=== PATIENT | female | born 1995 | race Caucasian/White ===

== ENCOUNTER → 2019-01-12 | Outpatient (CLI) | payer OTHER ==
[~2019-01-12] MED LIST: ALBU90OI INH; MEDR10 PO; MONT10T PO; Super B Comple1 EAC2 PO
[2019-01-12 15:40] LABS: BASOPHILS ABSOLUTE AUTO 0.06 K/mm3 (0.00-0.23); BASOPHILS PERCENT AUTO 0 % (0-2); EOSINOPHILS ABSOLUTE AUTO 0.02 K/mm3 (0.00-0.68); EOSINOPHILS PERCENT AUTO 0 % (0-6); Hematocrit 41.8 % (33.0-51.0); Hemoglobin 14.4 g/dL (11.5-16.0); IMMATURE GRAN ABSOLUTE AUTO 0.07 K/mm3 (0.00-0.10); IMMATURE GRAN PERCENT AUTO 0 % (0-1); LYMPHOCYTES ABSOLUTE AUTO 0.89 K/mm3 (0.84-5.20); LYMPHOCYTES PERCENT AUTO 4 % (21-46); MONOCYTES ABSOLUTE AUTO 2.01 K/mm3 (0.16-1.47); MONOCYTES PERCENT AUTO 10 % (4-13); Mean Corpuscular HGB 32.3 pg (26.0-34.0); Mean Corpuscular HGB Conc 34.4 g/dL (31.5-36.5); Mean Corpuscular Volume 94 fL (80-100); Mean Platelet Volume 12.2 fL (9.1-12.4); NEUTROPHILS ABSOLUTE AUTO 17.88 K/mm3 (1.96-9.15); NEUTROPHILS PERCENT AUTO 85 % (41-73); Platelet Count 262 K/mm3 (150-400); RDW Coefficient Variation 12.6 % (11.7-14.2); RDW Standard Deviation 43.5 fL (35.1-46.3); Red Blood Cell Count 4.46 M/mm3 (3.80-5.20); White Blood Cell Count 20.93 K/mm3 (4.00-11.30)
[2019-01-12 15:43] LABS: Anion Gap 11 mmol/L (6-16); Blood Urea Nitrogen 12 mg/dL (8-24); Bun/Creatinine Ratio 14.1 (12.0-20.0); CO2, Blood 25 mmol/L (21-32); Calcium, Blood 9.7 mg/dL (8.5-10.1); Chloride, Blood 99 mmol/L (98-108); Creatinine, Blood 0.85 mg/dL (0.40-1.00); Glomerular Filtration Rate >60 (60-); Glucose, Blood 88 mg/dL (70-99); Potassium, Blood 3.8 mmol/L (3.5-5.5); Sodium, Blood 135 mmol/L (136-145)
== END | disposition home or self-care (01) ==
LOC: LAB SHORT 15:26 → LAB EV 15:26
PROVIDERS: Family Medicine
DX: N10 Acute pyelonephritis (principal)
CPT/HCPCS: 80048; 85025; 87077; 87086; 87186

== ENCOUNTER → 2019-04-19 | Outpatient (CLI) | payer OTHER | END | disposition home or self-care (01) | LOC: LAB 17:11 → LAB SHORT 17:11 | DX: Z01.812 Encounter for preprocedural laboratory examination (principal); F17.200 Nicotine dependence, unspecified, uncomplicated | CPT/HCPCS: G0480 ==

== ENCOUNTER → 2019-05-05 | Outpatient (CLI) | payer OTHER | END | disposition home or self-care (01) | LOC: LAB SHORT 14:14 → LAB EV 14:14 | DX: R53.81 Other malaise (principal) | CPT/HCPCS: 87081 ==

== ENCOUNTER 2019-05-17 05:57 | Day surgery (SDC) | payer OTHER ==
[~2019-05-17] VITALS: Ht 167.6 cm; Wt 50.5 kg
[2019-05-17] MEDS ORDERED: ALBU90OI INH (06:34)
[2019-05-17] MEDS ORDERED: MONT10T PO (06:35)
[2019-05-17] MEDS ORDERED: MEDR10 PO (06:35)
[2019-05-17] MEDS ORDERED: Super B Comple1 EAC2 PO (06:36)
--- NOTE | 2019-05-17 06:45 | NUR ---
PT ADMITTED TO [facility]. AGREES WITH PLANNED SURGERY. LUNG SOUNDS CLEAR.
--- NOTE | 2019-05-17 09:12 | NUR ---
0830 assumed care of patient from PACU. Patient awake and alert. states having "only mild cramping" denies need for pain med. jie po fluids. has scant vaginal drainage on carol pad.Denies nausea. 0840 pudding given and tolerated well. No change in pain level VSS. 0910 Ning Nayak assumes care of patient.
--- NOTE | 2019-05-17 09:12 | NUR ---
ASSUMED CARE OF PT. RENO PAD IN PLACE. SCANT AMOUNT OF DRAINAGE. VERBAL AND WRITTEN D/C INSTUCTIONS GIVEN TO PT WITH STATED UNDERSTANDING.
== END 2019-05-17 23:26 | disposition home or self-care (01) ==
LOC: ORSCMMR 05:57 → ORD 07:30 → ORSCMMR 07:30 → ORD 11:00 → ORSCMMR 23:26
PROVIDERS: Obstetrics & Gynecology
PROC: 0UJD8ZZ Inspection of Uterus and Cervix, Via Natural or Artificial Opening Endoscopic (ICD-10-PCS; principal; 2019-05-17 07:30)
DX: N92.6 Irregular menstruation, unspecified (principal); N96 Recurrent pregnancy loss; K21.9 Gastro-esophageal reflux disease without esophagitis; Z79.899 Other long term (current) drug therapy
CPT/HCPCS: J1100; J2250; J2405; J2704; J2765; J3010; J7120